=== PATIENT | male | born 1955 | race Caucasian/White ===

== ENCOUNTER 2019-12-17 12:31 | Outpatient (CLI) | payer MEDICARE, BC | END 2019-12-17 12:32 | disposition short-term general hospital (02) | LOC: EMS 12:31 | PROVIDERS: ATTEND Surgery | DX: R07.9 Chest pain, unspecified (principal) | CPT/HCPCS: A0425; A0427 ==

== ENCOUNTER 2020-01-18 17:17 | Outpatient (CLI) | payer MEDICARE, BC | END 2020-01-18 17:18 | disposition critical access hospital (66) | LOC: EMS 17:17 | PROVIDERS: ATTEND Surgery | DX: R10.9 Unspecified abdominal pain (principal) | CPT/HCPCS: A0425; A0429 ==

== ENCOUNTER 2020-01-18 17:50 | Emergency (ER) | payer MEDICARE, BC ==
[2020-01-18 18:22] LABS: BASOPHILS # (AUTO) 0.1 10^3/uL (0.0-0.1); BASOPHILS % (AUTO) 0.8 %; EOSINOPHILS # (AUTO) 0.9 10^3/uL (0.0-0.7); EOSINOPHILS % (AUTO) 11.9 %; HGB - HEMOGLOBIN 12.1 g/dL (14.0-18.0); LYMPHOCYTES % (AUTO) 12.8 %; MEAN CORPUSCULAR HEMOGLOBIN 27.9 pg (27.0-31.0); MEAN CORPUSCULAR HGB CONC 32.4 g/dL (32.0-36.0); MEAN CORPUSCULAR VOLUME 86.4 fL (80.0-94.0); MEAN PLATELET VOLUME 10.9 fL (7.4-11.4); MONOCYTES # (AUTO) 0.9 10^3/uL (0.0-1.0); MONOCYTES % (AUTO) 11.8 %; NEUTROPHILS # (AUTO) 4.9 10^3/uL (1.5-6.6); NEUTROPHILS % (AUTO) 62.1 %; PLT - PLATELET COUNT 252 10^3/uL (130-450); RED BLOOD COUNT 4.33 10^6/uL (4.70-6.10); RED CELL DISTRIBUTION WIDTH 17.3 % (12.0-15.0); WHITE BLOOD COUNT 7.9 x10^3/uL (4.8-10.8)
[2020-01-18 18:36] LABS: ALBUMIN 3.3 g/dL (3.2-5.5); BILIRUBIN,TOTAL 0.7 mg/dL (0.2-1.0); CALCIUM 7.7 mg/dL (8.5-10.3); TOTAL PROTEIN 6.7 g/dL (6.7-8.2)
[2020-01-18 18:38] LABS: CREATININE 9.8 mg/dL (0.6-1.2)
--- NOTE | 2020-01-18 18:49 | ED Physician Documentation ---
History of Present Illness - Stated complaint Stated Complaint: RUQ PAIN - Chief complaint Chief Complaint: Abd Pain - History obtained from History obtained from: Patient - History of Present Illness Timing: How many weeks ago (2) - Additonal information Additional information: 64-year-old male with a history of atrial fib and end-stage renal disease presents to the emergency department for evaluation of epigastric abdominal pain. He reports that nearly 2-3 weeks ago he developed epigastric pain and his primary provider ordered a CAT scan that showed gallstones. He was referred to surgery for follow-up. The pain worsened so approximately a 2 weeks ago he did go to [facility] emergency department for further evaluation of this pain. At that time he was not admitted and advised to follow-up with the surgery. Today the pain continues to be worse so he called the surgery department and was advised to come to the ER. Because he does not drive paramedics brought him to [facility]. Patient undergoes 3 times weekly dialysis with dialysis scheduled tomorrow Review of Systems Constitutional: reports: Reviewed and negative Nose: reports: Reviewed and negative Throat: reports: Reviewed and negative Cardiac: reports: Reviewed and negative, Other (AV fistula right upper arm) Respiratory: reports: Reviewed and negative GI: reports: Abdominal Pain, Nausea, Vomiting. denies: Constipation, Diarrhea, Hematemesis : reports: Other (m-w-f dialysis) Skin: reports: Reviewed and negative Musculoskeletal: reports: Reviewed and negative Psychiatric: reports: Reviewed and negative PD PAST MEDICAL HISTORY - Present Medications Home Medications: Ambulatory Orders Medication Instructions Recorded Confirmed Apixaban [Eliquis] 0 mg PO DAILY 01/18/20 01/18/20 Clopidogrel [Plavix] 0 mg DAILY 01/18/20 01/18/20 Digoxin 125 mcg PO 01/18/20 Gabapentin [Neurontin] 0 mg PO HS 01/18/20 01/18/20 Hydrocodone/Acetaminophen 1 each PO BID #15 tablet 01/18/20 [Hydrocodone-Acetamin 5-325 mg] Sertraline [Zoloft] 0 mg PO DAILY 01/18/20 01/18/20 - Allergies Allergies/Adverse Reactions: Allergies Allergy/AdvReac Type Severity Reaction Status Date / Time No Known Drug Allergies Allergy Verified 01/18/20 17:59 PD ED PE EXPANDED - General General: Alert, No acute distress - Cardiac Cardiac: Irregularly irregular, Murmur Present, Radial strong equal, Femoral strong equal, Pedal strong equal - Respiratory Respiratory: Clear to ausultation yunior. No: Distress, Labored - Abdomen Abdomen: Tender to palpation, RUQ (Epigastric tenderness with mild rebound and guarding), Epigastric - Extremities Extremities: Right arm (AV fistula right upper arm positive bruit and thrill) - Neuro Neuro: Alert and Oriented X 3, CNII-XII intact, Normal gait, Normal finger nose, Normal speech Results - Vitals Vitals: Vital Signs - 24 hr 01/18/20 17:51 Temperature 36.4 C L Heart Rate 75 Respiratory 20 Rate Blood Pressure 124/69 O2 Saturation 99 - EKG (time done) 1930 Rate: Rate (enter#) (77) Rhythm: NSR [place]: Normal Intervals: Other (non specific IVCD) QRS: Normal Ischemia: Non specific changes (T wave flattening) Compare to prior EKG: Old EKG unavailable - Labs Labs: Laboratory Tests 01/18/20 01/18/20 01/18/20 18:10 18:10 19:43 WBC 7.9 RBC 4.33 L Hgb 12.1 L Hct 37.4 L MCV 86.4 MCH 27.9 MCHC 32.4 RDW 17.3 H Plt Count 252 MPV 10.9 Neut # (Auto) 4.9 Lymph # (Auto) 1.0 L [place] # (Auto) 0.9 Eos # (Auto) 0.9 H Baso # (Auto) 0.1 Absolute Nucleated RBC 0.00 Nucleated RBC % 0.0 Sodium 137 Potassium 4.9 Chloride 95 L Carbon Dioxide 22 Anion Gap 20.0 H BUN 50 H Creatinine 9.8 H* Estimated GFR (MDRD) 5 L Glucose 82 Lactic Acid 0.8 Calcium 7.7 L Total Bilirubin 0.7 AST 40 ALT 30 Alkaline Phosphatase 128 H Total Protein 6.7 Albumin 3.3 Globulin 3.4 Albumin/Globulin Ratio 1.0 Lipase 26 - Rads (name of study) Abd US Radiology: Final report received (Cholelithiasis without sonographic evidence of acute cholecystitis) PD MEDICAL DECISION MAKING - ED course Complexity details: reviewed results, considered differential, d/w patient ED course: 64-year-old male who has a history of end-stage renal disease and atrial fibrillation here with worsening epigastric abdominal pain. Reports a history of known gallstones for which he was scheduled to see a surgeon. - Labs are reviewed in full. Other than known chronic renal failure, he has no leukocytosis. Liver function tests essentially within normal limits. They do not show an obstructive pattern. Abdominal ultrasound does show Cholelithiasis without sonographic evidence of acute cholecystitis. - At this time this gentleman will be discharged home. He is to continue to follow-up with the surgery appointment already scheduled for the of this month. I will write a prescription for a limited amount of [place]. Emergent return precautions discussed Departure - Departure Disposition: Home, Self Care Clinical Impression: CKD (chronic kidney disease) requiring chronic dialysis Cholelithiasis Qualifiers: Cholelithiasis location: gallbladder Cholecystitis presence: without cholecystitis Biliary obstruction: without biliary obstruction Qualified Code(s): K80.20 - Calculus of gallbladder without cholecystitis without obstruction Condition: Stable Record reviewed to determine appropriate education?: Yes Prescriptions: Hydrocodone/Acetaminophen [Hydrocodone-Acetamin 5-325 mg] 1 each PO BID #15 tablet Comments: Srinivas the ultrasound shows that you do have a large gallstone but it is not causing obstruction or inflammation of the gallbladder. Please continue to follow-up with the surgeon as already scheduled. I have written a prescription for a little bit of Vicodin to help with your pain. If at any point you have suddenly severe or different pain, uncontrolled vomiting or develop any fevers please return to the emergency department. Continue dialysis and other medications as already prescribed
[2020-01-18] MEDS ORDERED: LIDOCAINE VISCOUS 2% 15 ML UDC MM STA (19:00)
[2020-01-18] MEDS ORDERED: HYDROmorphone 1 MG/ML CARPUJECT IVP STA (19:41)
--- NOTE | 2020-01-18 20:06 | Ultrasound Report ---
PROCEDURE: Abdomen Limited INDICATIONS: gallstones TECHNIQUE: Real-time focused scanning was performed of the abdomen, with image documentation. COMPARISON: None FINDINGS: Technically difficult study secondary to patient body habitus. The liver is grossly normal in size and overall morphology. Some portions were not able to be imaged due to body habitus. The gallbladder is distended but demonstrates normal wall thickness of 1.3 mm. There is a single ston e measuring about 4.1 cm in the neck. Biliary system is nondilated. Extrahepatic common duct measures between 6 and 7 mm. The pancreas was not well seen. Right kidney measures 9.1 cm in length, and demonstrates cortical hyp erechogenicity, but no hydronephrosis. IMPRESSION: 1. Cholelithiasis without sonographic evidence of acute cholecystitis. 2. Echogenic, mildly diminutive kidney consistent with history of known renal failure. 3. No sonographic evidence of biliary obstruction. Reviewed by: Clari Cooper MD on 01/18/2020 8:05 PM PDT Approved by: Clari Cooper MD on 01/18/2020 8:05 PM PDT Station ID: [id number]
[2020-01-18 20:15] VITALS: BP 124/71
== END 2020-01-18 20:50 | disposition home or self-care (01) ==
LOC: EDUNIT# → ED 17:50
DX: K80.20 Calculus of gallbladder without cholecystitis without obstruction (principal); N18.6 End stage renal disease; Z99.2 Dependence on renal dialysis; I48.91 Unspecified atrial fibrillation; Z79.01 Long term (current) use of anticoagulants
CPT/HCPCS: 36415; 76705; 80053; 83605; 83690; 85025; 93005; 96374; 99283; 99284; J1170

== ENCOUNTER 2020-01-22 13:32 | Outpatient (CLI) | payer MEDICARE, BC | END 2020-01-22 13:33 | disposition critical access hospital (66) | LOC: EMS 13:32 | PROVIDERS: ATTEND Surgery | DX: R10.9 Unspecified abdominal pain (principal); Z99.2 Dependence on renal dialysis | CPT/HCPCS: A0425; A0429 ==

== ENCOUNTER 2020-01-22 13:49 | Emergency (ER) | payer MEDICARE, BC ==
[2020-01-22] MEDS ORDERED: ONDANSETRON ODT 4 MG TABLET ONE (14:40)
[2020-01-22] MEDS ORDERED: HYDROmorphone 1 MG/ML CARPUJECT ONE (14:40)
--- NOTE | 2020-01-22 14:52 | ED Physician Documentation ---
PD HPI ABD PAIN - Stated complaint Stated Complaint: ABD PX - History obtained from History obtained from: Patient - History of Present Illness Timing - onset: Today Timing - duration: Minutes (30) Timing - details: Abrupt onset (He finished dialysis and then felt lightheaded, found to have low BP. This has happened at times with dialysis. They urged him to have some food and water, and he started with upper abd pain soon after that. BP improved but now with upper abd pain. Feeling similar to biliary colic episodes he has.), Still present Quality: Cramping, Aching, Pain Location: RUQ, Epigastric Improved by: No: Laying still Worsened by: Eating, Moving. No: Breathing Associated symptoms: Nausea, Near syncope / syncope (felt lightheaded briefly after dialysis; better now.). No: Fever, Vomiting, Diarrhea, Constipation, Chest pain, Dizzy Similar symptoms before: Diagnosis (has had transient low BP after dialysis before, and also having upper abd pain episodes lately, Dx recently in ER with biliary colic/gallstoens.) Review of Systems Constitutional: denies: Fever, Chills Nose: denies: Rhinorrhea / runny nose, Congestion Throat: denies: Sore throat Respiratory: denies: Cough GI: reports: Abdominal Pain, Nausea. denies: Vomiting, Diarrhea, Bloody / black stool : denies: Dysuria, Frequency Neurologic: denies: Focal weakness, Numbness, Syncope, Altered mental status, Headache PD PAST MEDICAL HISTORY - Past Medical History Cardiovascular: Coronary artery disease, [place] : Other - Past Surgical History Past Surgical History: Yes General: Gastric surgery - Present Medications Home Medications: Ambulatory Orders Medication Instructions Recorded Confirmed Apixaban [Eliquis] 0 mg PO DAILY 01/18/20 01/18/20 Clopidogrel [Plavix] 0 mg DAILY 01/18/20 01/18/20 Digoxin 125 mcg PO 01/18/20 Gabapentin [Neurontin] 0 mg PO HS 01/18/20 01/18/20 Hydrocodone/Acetaminophen 1 each PO BID #15 tablet 01/18/20 [Hydrocodone-Acetamin 5-325 mg] Sertraline [Zoloft] 0 mg PO DAILY 01/18/20 01/18/20 - Allergies Allergies/Adverse Reactions: Allergies Allergy/AdvReac Type Severity Reaction Status Date / Time No Known Drug Allergies Allergy Verified 01/18/20 17:59 - Social History Does the pt smoke?: No Smoking Status: Never smoker Does the pt drink ETOH?: No Does the pt have substance abuse?: No PD ED PE NORMAL - Vitals Vital signs reviewed: Yes - General General: Alert and oriented X 3, Well developed/nourished, Other (appears in pain upper abd. ) - Neck Neck: Supple, no meningeal sign, No adenopathy - Cardiac Cardiac: RRR, No murmur - Respiratory Respiratory: Clear bilaterally - Abdomen Abdomen: Normal bowel sounds, Soft, Non distended, No organomegaly, Other (tender epigastric and toward right upper abd. No percussion nor rebound tenderness. ) - Derm Derm: Normal color, Warm and dry - Extremities Extremities: No edema, No calf tenderness / cord - Neuro Neuro: Alert and oriented X 3, No motor deficit, Normal speech Results - Vitals Vitals: Vital Signs - 24 hr 01/22/20 15:32 Temperature 37.1 C Heart Rate 89 Respiratory 16 Rate Blood Pressure 124/55 L O2 Saturation 100 Oxygen O2 Source Room air PD MEDICAL DECISION MAKING - ED course Complexity details: re-evaluated patient (Improved with IM Dilaudid. Was going to give IV but difficult start and pt asked about IM instead. He then felt much better and recheck is not tender. So shared decision to forego labs, as does not clinically seem to be acute cholecystitis. ), considered differential, d/w patient Departure - Departure Disposition: 01 Home, Self Care Clinical Impression: Transient hypotension, CKD (chronic kidney disease) requiring chronic dialysis, Biliary colic symptom Condition: Stable Discharge Date/Time: 01/22/20 15:32
[2020-01-22 15:33] VITALS: BP 124/55
== END 2020-01-22 15:32 | disposition home or self-care (01) ==
LOC: EDBD → EDUNIT# → EDSEX → ED 13:49
DX: I95.3 Hypotension of hemodialysis (principal); N18.9 Chronic kidney disease, unspecified; Z99.2 Dependence on renal dialysis; K80.50 Calculus of bile duct without cholangitis or cholecystitis without obstruction; Z95.1 Presence of aortocoronary bypass graft; I13.11 Hypertensive heart and chronic kidney disease without heart failure, with stage 5 chronic kidney disease, or end stage renal disease; N18.6 End stage renal disease
CPT/HCPCS: 96372; 99283; 99284; J1170; Q0162